=== PATIENT | female | born 1955 | race Two or more races ===

== ENCOUNTER 2022-10-19 14:57 | Emergency (ER) | payer OTHER ==
[~2022-10-19] VITALS: Ht 165.1 cm; Wt 57.2 kg
--- NOTE | 2022-10-19 15:00 | NUR ---
B[facility]PA FOR RIGHT NEPHROSTOMY TUBE REMVAL
--- NOTE | 2022-10-19 16:31 | NUR ---
SET UP [facility] TRANSPORT WITH [facility] TO [facility]
--- NOTE | 2022-10-19 16:45 | NUR ---
RECEVING NURSE IN [facility] WILL CALL ME BACK TO TAKE REPORT.
--- NOTE | 2022-10-19 17:04 | NUR ---
[facility] ON SITE TO TRANSFER PT BACK TO [facility]
--- NOTE | 2022-10-19 17:04 | NUR ---
ATTEMPTED TO REACH EMILY/MARI[facility] PHONE NUMBER WAS DISCONNECTED/NO LONGER INSERVICE
[2022-10-19 17:12] VITALS: BP 119/71
== END 2022-10-19 17:14 | disposition short-term general hospital (02) ==
LOC: ER 15:42
DX: Z46.3 Encounter for fitting and adjustment of dental prosthetic device (principal); G40.909 Epilepsy, unspecified, not intractable, without status epilepticus; K21.9 Gastro-esophageal reflux disease without esophagitis; D64.9 Anemia, unspecified